=== PATIENT | male | born 1965 | race Caucasian/White ===

== ENCOUNTER 2017-01-07 00:46 | Inpatient (IN) | payer OTHER, MEDICAID ==
[2017-01-07] MEDS ORDERED: HYDROmorphONE/DILAUDID 1 MG/ML SYR IVP ONE (01:04)
[2017-01-07] MEDS ORDERED: ONDANSETRON 4 MG/2 ML VIAL IVP ONE (01:04)
[2017-01-07] MEDS ORDERED: NS 1,000 ML IV ONE (01:06)
[2017-01-07] MEDS ORDERED: VANCOMYCIN HCL/NORMAL SALINE 250 ML IV ONE (01:06)
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
[2017-01-07 01:48] LABS: ABSOLUTE IMMATURE GRANULOCYTES 0.14 10^3/uL (0.00-0.10); ADD DIFF? NO; ADD MORPH? NO; ADD SCAN? NO; ATYPICAL LYMPHOCYTE FLAG 20 (0-99); FRAGMENT RBC FLAG 0 (0-99); HEMATOCRIT 40.5 % (40.0-51.0); HEMOGLOBIN 13.3 g/dL (13.7-17.5); LEFT SHIFT FLG 10 (0-99); LIPEMIA HEMOLYSIS FLAG 80 (0-99); MEAN CELL HEMOGLOBIN 28.1 pg (27.9-34.1); MEAN CELL HEMOGLOBIN CONCENTR. 32.8 g/dL (32.4-36.7); MEAN CELL VOLUME 85.4 fL (81.5-99.8); MEAN PLATELET VOLUME 9.8 fL (8.7-11.7); PLATELET CLUMPS FLAG 10 (0-99); PLATELET COUNT 277 10^3/uL (150-400); RED BLOOD CELL COUNT 4.74 10^6/uL (4.40-6.38); RED CELL DISTRIBUTION WIDTH 14.1 % (11.5-15.2)
[2017-01-07] MEDS ORDERED: NS 2,700 ML IV ONE (01:53)
[2017-01-07 01:57] LABS: APTT 28.5 SEC (23.0-38.0); INR 1.13 (0.83-1.16); PROTIME(PATIENT) 14.4 SEC (12.0-15.0)
[2017-01-07 01:59] LABS: ALKALINE PHOSPHATASE 76 IU/L (38-126); ANION GAP 15 mEq/L (8-16); ASPARTATE AMINOTRANSFERASE 47 IU/L (17-59); BILIRUBIN,TOTAL 0.7 mg/dL (0.1-1.4); BILIRUBIN-CONJUGATED 0.5 mg/dL (0.0-0.5); BILIRUBIN-UNCONJUGATED 0.2 mg/dL (0.0-1.1); CALCIUM 9.1 mg/dL (8.5-10.4); CARBON DIOXIDE 22 mEq/l (22-31); CHLORIDE 105 mEq/L (97-110); CREATININE 0.7 mg/dL (0.7-1.3); GLOMERULAR FILTRATION RATE > 60; GLUCOSE 94 mg/dL (70-100); POTASSIUM 4.2 mEq/L (3.5-5.2); SODIUM 142 mEq/L (134-144); TOTAL PROTEIN 7.4 g/dL (6.3-8.2)
[2017-01-07 02:00] LABS: ALANINE AMINOTRANSFERASE 63 IU/L (21-72)
[2017-01-07 02:01] LABS: COLOR YELLOW; LEUKOCYTE ESTERASE,URINE TRACE (NEGATIVE); NITRITE,URINE NEGATIVE (NEGATIVE)
[2017-01-07 02:06] LABS: BACTERIA TRACE /hpf (NONE SEEN); MUCUS TRACE /lpf (NONE-1+); WBC,URINE 15-25 /hpf (0-3)
[2017-01-07] MEDS ORDERED: IOPAMIDOL (ISOVUE-300) 100 ML BTL IV ONE (02:09)
[2017-01-07] MEDS ORDERED: LORazepam 2 MG/ML INJ IVP ONE (02:17)
[2017-01-07] MEDS ORDERED: ACETAMINOPHEN 325 MG TAB PO ONE (02:34)
[2017-01-07 02:42] LABS: LACGHOST ORDER
[2017-01-07] MEDS ORDERED: LORazepam 2 MG/ML INJ IVP PRN (04:27)
[2017-01-07] MEDS ORDERED: oxyCODONE IR 5 MG TAB PO PRN (04:27)
[2017-01-07] MEDS ORDERED: ONDANSETRON 4 MG/2 ML VIAL IVP PRN (04:27)
[2017-01-07] MEDS ORDERED: ONDANSETRON DISINTEGRATING 4 MG TAB PO PRN (04:27)
[2017-01-07] MEDS ORDERED: HYDROmorphONE/DILAUDID 1 MG/ML SYR IVP PRN (04:27)
[2017-01-07] MEDS ORDERED: MAGNESIUM HYDROXIDE 30 ML UDCUP PO PRN (05:18)
[2017-01-07] MEDS ORDERED: POLYETHYLENE GLYCOL 3350 17 GM PKT PO PRN (05:18)
[2017-01-07] MEDS ORDERED: BISACODYL 10 MG SUPP PR PRN ×2 (05:18→13:23)
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
[2017-01-07] MEDS: NS 1,000 ML IV SCH ×2 (06:36→12:34)
[2017-01-07] MEDS: SENNOSIDES/DOCUSATE SODIUM TAB PO SCH ×2 (08:40→22:58)
[2017-01-07] MEDS: ACETAMINOPHEN 325 MG TAB PO PRN ×3 (08:42→18:10)
[2017-01-07] MEDS ORDERED: ERTAPENEM 1 GM in NS 100 ML IV SCH (09:00)
--- NOTE | 2017-01-07 09:06 | WOCRNPDOC ---
[facility] Advanced Assessment Note - Skin Integrity Problem, Advanced Assess Right Anterior Lower Leg Abscess Dressing Type: Allevyn Life Dressing Description: Clean/Dry, Intact Exudate Amount: Minimal Exudate Characteristic(s): Purulent Integumentary Issue Intervention: Dressing Removed Toma Wound Tissue: Erythema, Hot, Erythema Marked by Wound RN Toma Wound Swelling: Moderate Site Measurement - Head-to-Toe Length X Width X Depth (cm): 0.3x0.3x0.1 Skin Integrity Problem Comment: Firm tissue overlying abscess site. Unable to dislodge with Q tip. Advised consult for I Jose Carlos Pritchett in room for care. Will recover area with gauze and tape until seen my MD. Wound care will check in again tomorrow. Right Lower Medial Arm Abscess Dressing Type: Allevyn Life Dressing Description: Clean/Dry, Intact Integumentary Issue Intervention: Dressing Removed Toma Wound Tissue: Erythema, Swollen, Erythema Marked by Wound RN Toma Wound Swelling: Moderate Site Measurement - Head-to-Toe Length X Width X Depth (cm): 0.4x0.4x0.2 Skin Integrity Problem Comment: Smaller abscess than leg wound. Advised consult for I Jose Carlos Pritchett in room for care. Will recover area with gauze and tape until seen my MD. Wound care will check in again tomorrow. Sacrum Pressure Injury Dressing Type: Allevyn Life Dressing Description: Clean/Dry, Intact Exudate Amount: Minimal Exudate Characteristic(s): Serosanguinous Integumentary Issue Intervention: Dressing Changed Toma Wound Tissue: Erythema, Scarred Wound Bed Color: Red Wound Bed Constitution: Granulation Tissue (robust), Smooth Tissue Site Measurement - Head-to-Toe Length X Width X Depth (cm): 5.5x6x0.3 (right sacrum) 1.5x1.5x0.2 (left sacrum). Pressure Injury Stage: Stage 3 Pressure Injury Present on Admit: Yes Skin Integrity Problem Comment: Wound now healing and in proliferative phase. A full thickness wound with unknown previous stage (3 or 4?). Extensive scar tissue on sacrum and coccyx indicating multiple episodes of breakdown and healing. No sign of infection. Offload aggressively. Will order specialty mattress. Wound care will round on this wound again in one week. Scrotum Rash (flat) Skin Integrity Problem Comment: Mild to moderate incontinence associated dermatitis. Will write for barrier cream. Generalized Fungal Infection Dressing Type: Open to Air Skin Integrity Problem Comment: Raised red rash with satellite lesions along groins, axilla, thighs. Flat rash on scrotum. MD aware.
[2017-01-07] MEDS: ENOXAPARIN 40 MG/0.4 ML SYR SC SCH (09:09)
[2017-01-07] MEDS: ERTAPENEM 1 GM in NS 100 ML IV SCH (09:09)
[2017-01-07] MEDS ORDERED: ALBUTEROL 60 PUFFS/8 GM MDI IH PRN (13:23)
--- NOTE | 2017-01-07 13:32 | HOSPPROG ---
Hospitalist Progress Note Assessment/Plan: Patient is a 51/M with paraplegia at T2, intermittent asthma, chronic pain syndrome, neurogenic bladder with self-catheterizations, recent admission to [facility] for R foot osteomyelitis s/p 5th toe amputation, and chronic sacral decubitus ulcers who presents to the ED with fever, generalized fatigue/ malaise. ED work up reveals sepsis due to acute UTI and several skin abscesses that are likely another source of infection. Plan: # severe sepsis (improving) UTI vs abscess -cont erta/vanco -await cultures #abscess (draining) on right wrist right lower leg with fluctuance and pain to palp -surgery consulted to eval for I&D -cont vanco # abdominal distention, pain (improved) Patient came to ED complaining of abdominal pain. CT abd/pelvis shows mild constipation without other acute pathology. Patient reports last bm was on day of presentation but he does feel constipated. Will initiate bowel regimen and monitor serial abdominal exams. #intertrigo -lotrisome cream and consider systemic treatment if not improving with topicals # chronic pain syndrome Will confirm and cont home meds # paraplegia, stage 2 sacral decubitus ulcer Will obtain wound care consult. # mild intermittent asthma Resp status stable on presentation, will provide nebs prn. # PTSD, delusional disorder Will confirm and continue home meds. # dispo: admit to inpatient service for likely > 2 mN stay # gen; regular diet DVT ppx: lovenox Full code Objective: Vital Signs Temp Pulse Resp BP Pulse Ox 36.8 C 79 16 130/77 H 95 01/07/17 11:32 01/07/17 11:32 01/07/17 11:32 01/07/17 11:32 01/07/17 11:32 01/06/17 01/07/17 01/08/17 05:59 05:59 05:59 Intake Total 425 Output Total 420 Balance 5 PT 14.4 SEC (12.0-15.0) 01/07/17 01:36 INR 1.13 (0.83-1.16) 01/07/17 01:36 ICD10 Worksheet Patient Problems: Problems Problem Status Onset Severe sepsis Acute Abscess Acute Urinary tract infection Acute
[2017-01-07] MEDS: VANCOMYCIN 1.5 GM in D5W 250 ML IV SCH (13:50)
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
[2017-01-07] MEDS: CLOTRIMAZOLE/BETAMET DIPROP 15 GM CRTUBE TP SCH ×2 (17:06→22:55)
[2017-01-07] MEDS: LORazepam 2 MG/ML INJ IVP PRN (23:30)
[2017-01-08] MEDS: VANCOMYCIN 1.5 GM in D5W 250 ML IV SCH ×2 (01:33→15:14)
[2017-01-08] MEDS: NS 1,000 ML IV SCH ×2 (01:34→15:14)
[2017-01-08] MEDS: ACETAMINOPHEN 325 MG TAB PO PRN ×3 (03:39→21:33)
[2017-01-08] MEDS: ALBUTEROL 3 ML DEYVIAL IH PRN ×3 (03:52→22:09)
[2017-01-08] MEDS: LORazepam 2 MG/ML INJ IVP PRN ×3 (06:27→21:33)
[2017-01-08] MEDS: ERTAPENEM 1 GM in NS 100 ML IV SCH (09:18)
[2017-01-08] MEDS: ENOXAPARIN 40 MG/0.4 ML SYR SC SCH (09:29)
[2017-01-08] MEDS: SENNOSIDES/DOCUSATE SODIUM TAB PO SCH ×2 (09:30→21:32)
[2017-01-08] MEDS: CLOTRIMAZOLE/BETAMET DIPROP 15 GM CRTUBE TP SCH ×2 (09:32→22:03)
[2017-01-08] MEDS: MULTIVITAMINS 1 EACH TAB PO SCH (09:32)
--- NOTE | 2017-01-08 12:13 | HOSPPROG ---
Hospitalist Progress Note Assessment/Plan: Patient is a 51/M with paraplegia at T2, intermittent asthma, chronic pain syndrome, neurogenic bladder with self-catheterizations, recent admission to [facility] for R foot osteomyelitis s/p 5th toe amputation, and chronic sacral decubitus ulcers who presents to the ED with fever, generalized fatigue/ malaise. ED work up reveals sepsis due to acute UTI and several skin abscesses that are likely another source of infection. # severe sepsis (improving) MRSA abscess vs UTI -cont erta/vanco -await urine cultures #abscess (draining) on right wrist right lower leg with fluctuance and pain to palp s/p I&D by Dr. Stephens 12/07 -cont daily dressing changes/wound care # abdominal distention, pain (improved) Patient came to ED complaining of abdominal pain. CT abd/pelvis shows mild constipation without other acute pathology. Patient reports last bm was on day of presentation but he does feel constipated. Will initiate bowel regimen and monitor serial abdominal exams. #intertrigo -lotrisome cream and consider systemic treatment if not improving with topicals # chronic pain syndrome cont home meds # paraplegia, stage 2 sacral decubitus ulcer wound care consult. # mild intermittent asthma Resp status stable on presentation, will provide nebs prn. # PTSD, delusional disorder Will confirm and continue home meds. # dispo: admit to inpatient service for likely > 2 mN stay. DC to snf on appropriate abx to cover MRSA skin infections and UTI as indicated # gen; regular diet DVT ppx: lovenox Full code Subjective: no fevers. still feels weak and tired Objective: Vital Signs Temp Pulse Resp BP Pulse Ox 36.9 C 66 16 111/61 92 01/08/17 11:20 01/08/17 07:50 01/08/17 11:20 01/08/17 11:20 01/08/17 11:20 Microbiology 01/07/17 14:30 Gram Stain - Final Leg - Aspirate 01/07/17 01/08/17 01/09/17 05:59 05:59 05:59 Intake Total 2375 900 Output Total 770 255 Balance 1605 645 PT 14.4 SEC (12.0-15.0) 01/07/17 01:36 INR 1.13 (0.83-1.16) 01/07/17 01:36 - Physical Exam Constitutional: no apparent distress, appears nourished, not in pain Cardiovascular: regular rate and rhythym, no murmur, rub, or gallop Respiratory: no respiratory distress, no rales or rhonchi, clear to auscultation Skin: other (packed abscess right wrist and right leg) Neurologic: AAOx3, sensation intact bilaterally, CN II-XII Intact, No facial droop ICD10 Worksheet Patient Problems: Problems Problem Status Onset Severe sepsis Acute Abscess Acute Urinary tract infection Acute
--- NOTE | 2017-01-08 14:38 | SOAPPROG ---
SOAP Progress Note Assessment/Plan: Assessment: 51yo M s/p lower leg and forearm I&D - sites continue to drain purulent material. Cont to change packing as needed. Will re-eval tomorrow whether or not needs further debridement, poss in OR. Pain appears well controlled, cellulitis somewhat improved. Plan: 01/08/17 14:37 Objective: Vital Signs Temp Pulse Resp BP Pulse Ox 36.9 C 66 16 111/61 92 01/08/17 11:20 01/08/17 07:50 01/08/17 11:20 01/08/17 11:20 01/08/17 11:20 Microbiology 01/07/17 14:30 Gram Stain - Final Leg - Aspirate 01/07/17 01/08/17 01/09/17 05:59 05:59 05:59 Intake Total 2375 900 Output Total 770 255 Balance 1605 645 PT 14.4 SEC (12.0-15.0) 01/07/17 01:36 INR 1.13 (0.83-1.16) 01/07/17 01:36 ICD10 Worksheet Patient Problems: Problems Problem Status Onset Abscess Acute Severe sepsis Acute Urinary tract infection Acute
[2017-01-09] MEDS: ALBUTEROL 3 ML DEYVIAL IH PRN ×3 (01:43→20:53)
[2017-01-09] MEDS: ACETAMINOPHEN 325 MG TAB PO PRN ×3 (02:10→21:13)
[2017-01-09] MEDS: VANCOMYCIN 1.5 GM in D5W 250 ML IV SCH ×2 (02:54→15:25)
[2017-01-09] MEDS: LORazepam 2 MG/ML INJ IVP PRN ×2 (04:08→21:14)
[2017-01-09] MEDS: MULTIVITAMINS 1 EACH TAB PO SCH (10:25)
[2017-01-09] MEDS: ERTAPENEM 1 GM in NS 100 ML IV SCH ×2 (10:26→13:22)
[2017-01-09] MEDS: SENNOSIDES/DOCUSATE SODIUM TAB PO SCH ×2 (10:51→21:24)
[2017-01-09] MEDS: ENOXAPARIN 40 MG/0.4 ML SYR SC SCH (10:51)
[2017-01-09] MEDS: CLOTRIMAZOLE/BETAMET DIPROP 15 GM CRTUBE TP SCH ×2 (10:54→21:22)
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
[2017-01-09] MEDS: DOXYCYCLINE HYCLATE 100 MG CAP/TAB PO SCH (21:23)
--- NOTE | 2017-01-09 21:34 | HOSPPROG ---
Hospitalist Progress Note Assessment/Plan: DIAGNOSES: -multiple skin abscesses, MRSA in multiple wound cultures -acute r thoracic single dermatome shingles -paraplegia -chronic hip wound -chronic mental health disease, stable The patient has ongoing need for antibiotic therapy. He has lost his peripheral IV access, and at this time will not allow placement of PICC or central line. 6 Nurses have tried to get and IV in unsuccessfully, including use of site recreation worker, and I have examined him and not found an obvious placement site. He has MRSA, and multiple antibiotic allergies limiting therapy chpices. With his multiple hospitalizations he is also at risk for polymicrobial infection with resistance, making antibiotic choice harder. As he has no peripheral access and won't allow picc or central line, I have ordered doxycycline and will see if he is willing over time to take that. He has requested that we transfer him to [facility], which I am told he has requested before. I have contacted the [facility] transfer office but as of this time have not heard back from the admitting physician educational recruiter. Will try them again in the am if the patient still wishes. For his shingles he has had the rash for several days and does not have much pain, so that antiviral is not likely to help. However I did recommend that in the not distant future as outpatient he have a shingles vaccine and he understands this. Objective: Vital Signs Temp Pulse Resp BP Pulse Ox 36.6 C 84 16 131/78 H 93 01/09/17 16:00 01/09/17 16:00 01/09/17 16:00 01/09/17 16:00 01/09/17 16:00 Microbiology 01/07/17 14:30 Gram Stain - Final Leg - Aspirate Wound Culture - Final MRSA 01/08/17 01/09/17 01/10/17 06:59 06:59 06:59 Intake Total 3275 2744 500 Output Total 770 1105 750 Balance 2505 1639 -250 PT 14.4 SEC (12.0-15.0) 01/07/17 01:36 INR 1.13 (0.83-1.16) 01/07/17 01:36 ICD10 Worksheet Patient Problems: Problems Problem Status Onset Abscess Acute Severe sepsis Acute Urinary tract infection Acute
[2017-01-10] MEDS: VANCOMYCIN 1.5 GM in D5W 250 ML IV SCH ×3 (01:23→12:09)
[2017-01-10] MEDS: LORazepam 1 MG TAB PO PRN ×2 (01:37→23:28)
[2017-01-10] MEDS: ACETAMINOPHEN 325 MG TAB PO PRN ×3 (03:01→23:28)
[2017-01-10] MEDS: DOXYCYCLINE HYCLATE 100 MG CAP/TAB PO SCH ×3 (08:58→23:51)
[2017-01-10] MEDS: CLOTRIMAZOLE/BETAMET DIPROP 15 GM CRTUBE TP SCH ×2 (08:58→23:53)
[2017-01-10] MEDS: ERTAPENEM 1 GM in NS 100 ML IV SCH (08:59)
[2017-01-10] MEDS: ENOXAPARIN 40 MG/0.4 ML SYR SC SCH (08:59)
[2017-01-10] MEDS: MULTIVITAMINS 1 EACH TAB PO SCH (10:45)
[2017-01-10] MEDS: SENNOSIDES/DOCUSATE SODIUM TAB PO SCH ×2 (10:45→23:54)
[2017-01-10] MEDS: ALBUTEROL 3 ML DEYVIAL IH PRN ×2 (11:20→17:35)
--- NOTE | 2017-01-10 11:27 | HOSPPROG ---
Hospitalist Progress Note Assessment/Plan: DIAGNOSES: -multiple skin abscesses all present on admission, MRSA in multiple wound cultures -acute r thoracic single dermatome shingles, nonpainful, 1st ever episode -paraplegia -chronic hip wound -chronic mental health disease, stable Overall there is some improvement in the appearance of his abscess lesions but they still require wound care and antibiotic therapy. Last night the nurses were finally with further efforts able to get a peripheral IV in his arm. However the IV came out before they were able to get his 1st dose of vancomycin put in. Patient describes that he thinks he knocked the IV against the bed rail. However as I talked to the nurses the IV tubing was on screwed from the IV catheter and the tape had been pulled up from the IV catheter in the appearance identical to what they found with the IV that came out earlier in the day, which also had the tubing and a screwed somehow from the IV catheter. They were suspicious that the patient had disconnected the IV tubing and full detail about on his own. I offered him oral doxycycline last night and ordered this but he has been refusing to take the oral doxycycline. He is telling me now that oral antibiotics never worked for him and he can't take them. He also again is steadfastly refusing to having either a PICC line or central line placed even know there is no medical indication for avoiding those lines specifically in his case beyond the usual. I had a phone discussion with his sister today. She is his guardian and conservator or as court appointed. She tells me that is quite routine for him to refuse oral medications and refuse other recommended treatments. He also frequently apparently removed IV catheters. She says that he quite routinely also requests or demands to be transferred from 1 hospital to another. In the past he has called 911 from his hospital room numerous times and this hospital and other hospitals have had avendaño telephones out of his room due to this. He also calls 911 from [facility], the nursing facility where he lives and they have not allow the phone in his room there either. He has continually requested that he be new moved to another nursing facility for residence. In order to maintain continuity of care , she is requesting that he continue to stay at [facility] and continue to have his medical his care here at [facility]. I spoke with the patient again today about options for treating his abscesses. He is very willing to go along with wound care recommendations. However he is steadfast again today in declining to accept oral antibiotics or to accept a PICC catheter or central line. I informed him that would make 1 further attempt to trying get a peripheral IV in as it took 8 nurses and using a site matter to get 1 yesterday. If the nurses are unable to get a peripheral IV placed or if a peripheral IV is placed and is removed, he will need to make a choice between oral antibiotics and the central line. He has not had an antibiotic dose now for more than 24 hours. Notably I had requested consultation yesterday from Dr. Bliss from Infectious Disease to review and make recommendations amount therapy and antibiotics. The patient declined to allow Dr. Buckner to assess his abscesses. PLANS: -have nurses make 1 more attempt to get peripheral IV in -If unsuccessful will review with the patient again and he will either need to choose between a PICC line and oral doxycycline -Continue wound care -DVT prophylaxis -will shingles vaccine as an outpatient SUBJECTIVE: The patient still complains of his usual back pain and leg pains. He does not specifically of pain at his abscesses at this time Eating okay OBJECTIVE Vitals reviewed: Stable without fever Exam: alert oriented skin the abscess on his wrist at now has a dried scab over it though there is no accumulating fluid and the cellulitis around it seems better. There is a small very superficial abscess now forming just distal to that separate from it completely with mild area of surrounding cellulitis. I drained a very tiny amount of purulent fluid from this abscess by needle was unable to express or remove any other fluid but feel no fluctuance. There is no necrosis at either these. On his right leg the abscess still has mild cellulitis around it. The tape was removed my presence by the nurse and there is still purulent material on the tape so where repacking the wound with tape again. Again there is no evidence of necrosis at this wound. resps not labored lungs clear BSs heart regular abd soft nondistended nontender, bowel sounds present limbs warm, no edema iv site ok Objective: Vital Signs Temp Pulse Resp BP Pulse Ox 36.6 C 73 18 152/94 H 93 01/10/17 08:00 01/10/17 08:00 01/10/17 08:00 01/10/17 08:00 01/10/17 08:00 Microbiology 01/07/17 14:30 Gram Stain - Final Leg - Aspirate Wound Culture - Final MRSA 01/09/17 01/10/17 01/11/17 06:59 06:59 06:59 Intake Total 2744 500 Output Total 1105 750 Balance 1639 -250 PT 14.4 SEC (12.0-15.0) 01/07/17 01:36 INR 1.13 (0.83-1.16) 01/07/17 01:36 ICD10 Worksheet Patient Problems: Problems Problem Status Onset Abscess Acute Severe sepsis Acute Urinary tract infection Acute
[2017-01-10] MEDS: LORazepam 2 MG/ML INJ IVP PRN (12:05)
--- NOTE | 2017-01-10 17:07 | PCMIDPN ---
Assessment/Plan: Assessment/Plan: 1. Multiple skin abscess: polymicrobial: -Cx with mrsa, Group A strep, klebiella -was on vanco, invanz. lost iv and is refusing picc line. unable to get peripheral iv -now on doxycycline. Was previously refusing oral antibiotics but finally agreed to taking it this afternoon and took first dose -spoke with anup. Russ is sensitive to tetracycline and they wiill update susceptibility profile. 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 -doxy however, doesn't cover STrep well enough -he needs ongoing wound care. -will add mupirocin to nose x 5 days. -care coordiated with his Rn. Subjective: afebrile. eyes closed. patient states he doesn't want to talk to anyone right now. Objective: Vital Signs Temp Pulse Resp BP Pulse Ox 36.6 C 72 24 H 153/79 H 93 01/10/17 08:00 01/10/17 15:55 01/10/17 15:55 01/10/17 15:55 01/10/17 15:55 Microbiology 01/07/17 14:30 Gram Stain - Final Leg - Aspirate Wound Culture - Final MRSA 01/09/17 01/10/17 01/11/17 05:59 05:59 05:59 Intake Total 3644 500 Output Total 1679 632 1655 Balance 0113 -800 -4678 - Physical Exam General Appearance: other (eyes closed. pt refusing exam) ICD10 Worksheet Patient Problems: Problems Problem Status Onset Abscess Acute Severe sepsis Acute Urinary tract infection Acute
[2017-01-10] MEDS: MUPIROCIN 2% 22 GM OINT NS SCH (23:54)
[2017-01-11] MEDS: ENOXAPARIN 40 MG/0.4 ML SYR SC SCH (08:13)
[2017-01-11] MEDS: SENNOSIDES/DOCUSATE SODIUM TAB PO SCH ×2 (08:13→20:44)
[2017-01-11] MEDS: MUPIROCIN 2% 22 GM OINT NS SCH ×2 (08:13→23:24)
[2017-01-11] MEDS: MULTIVITAMINS 1 EACH TAB PO SCH (08:13)
[2017-01-11] MEDS: DOXYCYCLINE HYCLATE 100 MG CAP/TAB PO SCH ×2 (08:13→20:44)
[2017-01-11] MEDS: CLOTRIMAZOLE/BETAMET DIPROP 15 GM CRTUBE TP SCH ×2 (08:13→23:24)
[2017-01-11] MEDS: LORazepam 1 MG TAB PO PRN ×2 (09:56→20:44)
[2017-01-11] MEDS: ACETAMINOPHEN 325 MG TAB PO PRN ×2 (09:56→20:44)
[2017-01-11] MEDS ORDERED: ALTEPLASE 2 MG VIAL IVP PRN (10:03)
--- NOTE | 2017-01-11 10:17 | WOCRNPDOC ---
WOCRN Advanced Assessment Note - Skin Integrity Problem, Advanced Assess Right Anterior Lower Leg Abscess Dressing Type: Kerlix, Plain Packing (laying on top of wound bed) Dressing Description: Shadowed Exudate Amount: Scant Exudate Color: Brown Exudate Characteristic(s): Dried, Sanguinous Integumentary Issue Intervention: Dressing Changed, Silver Gel Applied Aleshia Wound Tissue: Erythema, Swollen, Erythema Marked by Wound RN (Marked by wound RN on 01/07) Aleshia Wound Swelling: Mild Wound Bed Color: Red, Yellow Wound Bed Constitution: Smooth Tissue, Scab, Dried Exudate Site Odor: None Site Measurement - Head-to-Toe Length X Width X Depth (cm): 0.7cmx0.3cmx0.1cm Skin Integrity Problem Comment: Assessed wounds w/ Dr. Bates and IDALIA Ames. Packing from previous dressing change observed on top of wound. After cleansing site w/ NS and gauze, no appreciable depth was noted in this wound. Wound bed comprised of dried sanguinous and serous fluid. Aleshia-wound erythema marked by wound RN on 01/07 is still apparent, though redness has receded and remains w/in confines of previous marking. There is some mild swelling, but no fluctuance. Applied Silvasorb gel and Allevyn to protect wound. videotape operatorCHENCHO Winkler present and assisting. Right Lower Medial Arm Abscess Dressing Type: Gauze, Kerlix Exudate Amount: Scant Exudate Color: Brown Exudate Characteristic(s): Dried Integumentary Issue Intervention: Dressing Changed, Silver Gel Applied Aleshia Wound Tissue: Erythema, Swollen Aleshia Wound Swelling: Mild Wound Bed Color: Red Wound Bed Constitution: Dried Exudate Wound Edges: Epithelizing Site Odor: None Site Measurement - Head-to-Toe Length X Width X Depth (cm): 0.2cmx0.2cmx0.1cm Skin Integrity Problem Comment: Small, dried, wound bed noted, w/ no appreciable depth. There is mild, discrete aleshia-wound erythema w/ mild associated swelling. No fluctuance noted. Applied Silvasorb gel and Allevyn to protect site. videotape operatorCHENCHO Winkler present and assisting.
--- NOTE | 2017-01-11 10:18 | HOSPPROG ---
Hospitalist Progress Note Assessment/Plan: DIAGNOSES: -multiple skin abscesses all present on admission, MRSA, Klebsiella and Strep in multiple wound cultures -acute r thoracic single dermatome shingles, nonpainful, 1st ever episode -paraplegia -chronic hip wound -chronic mental health disease, stable Overall doing ok but still with cellulitis around his abscesses that is not really improving. No signs of sepsis. Today he is more motivated to get better and to work with us here, and is now willing to accept picc line so that we can get better strep coverage PLANS: -will get picc in and change coverage to get at strep better, will review with ID -Continue wound care -DVT prophylaxis -will need shingles vaccine as an outpatient SUBJECTIVE: The patient still complains of his usual back pain and leg pains. No pain at abscesses no other acute sxs Eating okay OBJECTIVE Vitals reviewed: Stable without fever, intermittent mild syst htn I examined today with wound care nurse and with Baldomero Garner of surgery Exam: alert oriented skin the abscess on his wrist at now has a dried scab, no fluctuance, but the surrounding cellulitis is no better. The smaller superficial abscess just distal to the original lesion has still area of surrounding cellulitis. . On his right calve the abscess still has mild cellulitis around it and the tape and cover dressing are with purulent materila. There is no necrosis at any of these. resps not labored lungs clear BSs heart regular abd soft nondistended nontender, bowel sounds present limbs warm, no edema iv site ok Objective: Vital Signs Temp Pulse Resp BP Pulse Ox 36.9 C 71 16 130/82 H 93 01/11/17 08:00 01/11/17 08:00 01/11/17 08:00 01/11/17 08:00 01/11/17 08:00 01/10/17 01/11/17 01/12/17 06:59 06:59 06:59 Intake Total 500 700 Output Total 750 2125 Balance -250 -1425 PT 14.4 SEC (12.0-15.0) 01/07/17 01:36 INR 1.13 (0.83-1.16) 01/07/17 01:36 ICD10 Worksheet Patient Problems: Problems Problem Status Onset Abscess Acute Severe sepsis Acute Urinary tract infection Acute
--- NOTE | 2017-01-11 16:10 | SOAPPROG ---
SOAP Progress Note Assessment/Plan: Assessment: 51yo male with multiple medical problems s/p I&D right wrist, right lower leg abscess. Initially refused antibiotics, now agreeable PE R wrist mild erythema around incision and drainage site, no fluctuance Right lower leg minimal erythema, no fluctuance over incision and drainage site Plan: no need for further I&D at this time, continue antibiotics. will discuss with Dr Spaulding/Yamil 01/11/17 16:07 Objective: Vital Signs Temp Pulse Resp BP Pulse Ox 36.9 C 71 16 130/82 H 93 01/11/17 08:00 01/11/17 08:00 01/11/17 08:00 01/11/17 08:00 01/11/17 08:00 01/10/17 01/11/17 01/12/17 05:59 05:59 05:59 Intake Total 500 700 Output Total 750 2125 Balance -250 -1425 PT 14.4 SEC (12.0-15.0) 01/07/17 01:36 INR 1.13 (0.83-1.16) 01/07/17 01:36 ICD10 Worksheet Patient Problems: Problems Problem Status Onset Abscess Acute Severe sepsis Acute Urinary tract infection Acute
[2017-01-12] MEDS ORDERED: CALCIUM CARBONATE 500 MG CHEWABLE TAB PO PRN (01:54)
[2017-01-12] MEDS: ACETAMINOPHEN 325 MG TAB PO PRN ×3 (02:43→19:08)
[2017-01-12] MEDS: LORazepam 1 MG TAB PO PRN ×3 (02:43→19:09)
[2017-01-12 09:05] VITALS: BP 123/80; PULSE 70; RESP 16; TEMP 98; O2SAT 96
[2017-01-12] MEDS: CLOTRIMAZOLE/BETAMET DIPROP 15 GM CRTUBE TP SCH (10:31)
[2017-01-12] MEDS: MUPIROCIN 2% 22 GM OINT NS SCH (10:32)
[2017-01-12] MEDS: ENOXAPARIN 40 MG/0.4 ML SYR SC SCH (10:32)
[2017-01-12] MEDS: SENNOSIDES/DOCUSATE SODIUM TAB PO SCH (10:33)
[2017-01-12] MEDS: MULTIVITAMINS 1 EACH TAB PO SCH (10:34)
[2017-01-12] MEDS: DOXYCYCLINE HYCLATE 100 MG CAP/TAB PO SCH (10:35)
[2017-01-12] MEDS ORDERED: LACTULOSE 20 GM/30 ML UDCUP PO PRN (15:04)
--- NOTE | 2017-01-12 17:29 | PDIAF ---
- Diagnosis Diagnosis: multiple superficial skin abscesses with MRSA; constipation; acute shingles Code Status: Full Code - Medication Management Discharge Medications: Medications to Continue on Transfer Albuterol [Proventil Inhaler HFA (*)] 1 - 2 puffs IH DAILY PRN 01/07/17 [Last Taken Unknown] Bisacodyl [Bisacodyl (*)] 5 mg PO PRN PRN 01/07/17 [Last Taken Unknown] Bisacodyl [Dulcolax] 10 mg RC DAILY PRN 01/07/17 [Last Taken Unknown] Multivitamins [Multivitamin (*)] 1 each PO DAILY 01/07/17 [Last Taken Unknown] Clotrimazole/Betamet Diprop [Lotrisone Cream (*)] 1 catrachita TP BID cream 01/12/17 [ Last Taken Unknown] Doxycycline Hyclate [Vibramycin 100 MG (*)] 100 mg PO BID capsule 01/12/17 [ Last Taken Unknown] Polyethylene Glycol 3350 [Miralax 17 gm (*)] 17 gm PO DAILY PRN #0 pkt 01/12/17 [Last Taken Unknown] Sennosides/Docusate Sodium [Senokot-S] 1 - 2 tab PO BID tab 01/12/17 [Last Taken Unknown] Discharge Medications: Refer to the Discharge Home Medication list for PRN reason. PICC Care - Routine: N/A - Orders Services needed: Registered Nurse, Certified Paper Handler, Master Certified Appliance Service Technician Diet Recommendation: no restrictions on diet Diet Texture: Regular Texture Diet Wound Care Instructions: dressing changes to wound on R wrist, R lateral calve, and L first toe/foot Additional: Contact isolation for both Shingles (for one more week) and MRSA - Follow Up Care Current Providers and Referrals: Patient,NotPresent [Unknown] - As per Instructions
--- NOTE | 2017-01-12 17:53 | PDDCSUM ---
Discharge Summary Discharge Summary: DISCHARGE DIAGNOSES: -multiple skin abscesses all present on admission, MRSA, and Strep in multiple wound cultures -constipation -acute R thoracic single dermatome shingles, nonpainful, 1st ever episode -paraplegia -chronic hip wound -chronic mental health disease, stable CONSULTANTS: Dr. Izaiah Buckner of Infectious Disease PROCEDURES: Incision and drainage of abscesses of the skin HOSPITAL COURSE SUMMARY: This patient presented to the hospital with fever, skin abscess, and constipation. He was found to have multiple skin abscesses primarily there were small superficial skin abscess on the right wrist and right calf. These were recent onset. These were excised and drained with small amount of purulent fluid cultures of which grew MRI say and strep. There is also a Klebsiella of questionable significance. The patient was started on antibiotics and responded quite well with wound care and antibiotics and these are healing up very nicely. Ongoing wound care and antibiotics to be carried out at the nursing facility where he lives at this point. He also did have some abdominal pain and constipation. CT scan had been done in the ER that showed constipation but no other findings. Here in the hospital he did have bowel movements. Despite these bowel movement he continued to complain of some discomfort related to his bowels. However he was eating well without difficulty there with no nausea no fever no real abdominal tenderness or peritoneal signs on exam. He did initially take some laxatives but then requested enemas. When we went to give enemas he declined these. At this point no further care besides stool softeners and occasional laxative are indicated. He is 51 and has never had a colonoscopy and I did discuss with him that he should talk with his primary care physician about referral for screening colonoscopy. PENDING TEST RESULTS: None MEDICATION CHANGES: Doxycycline 100 mg twice daily for another 5 days FOLLOW-UP PLAN: Follow up with his primary care at the snf facility along with wound care nursing Is recommended that the patient have screening colonoscopy sometime in the not terribly distant future his he was reached age 51 and has constipation. I did discuss this with the patient and recommended he review with his primary care physician. Greater than 35 minutes bedside and care coordination time today
--- NOTE | 2017-01-26 14:53 | PQFORM ---
PHYSICIAN QUERY FORM Needs Your Response This query form is being sent to you to assure this patient record is coded properly. Please respond to the question below: RESEARCH AGRICULTURAL ENGINEER QUESTION: Dr Walker Please clarify the stage of the patients Sacral Ulcer as it has been documented as both Stage 2 as well as Stage 3. ___ Stage 2 __x_ Stage 3 ___ Other (Please Specify ) ___ Undetermined Thank You Margy RODGERS Primer Powder Blender Wet INSTRUCTIONS FOR RESPONSE: Answer question by clicking on the "Edit Document" button. Move cursor to area below the stars. When complete, hit "Save." Click on the "Sign" button, then click "Sign" again. Type in your PIN and hit "Enter." MTDD
== END 2017-01-12 19:14 | DRG 871 ==
LOC: EEVIPCON 00:46 → OBSVTOIN 04:27 → F3E 04:35
PROVIDERS: ADMIT Internal Medicine; ATTEND Family Medicine
PROC: 0H9CXZX Drainage of Left Upper Arm Skin, External Approach, Diagnostic (ICD-10-PCS; principal; 2017-01-07)
PROC: 0H9KXZX Drainage of Right Lower Leg Skin, External Approach, Diagnostic (ICD-10-PCS; principal; 2017-01-07)
DX: A41.02 Sepsis due to Methicillin resistant Staphylococcus aureus (principal); R65.20 Severe sepsis without septic shock; L02.413 Cutaneous abscess of right upper limb; L02.415 Cutaneous abscess of right lower limb; L89.153 Pressure ulcer of sacral region, stage 3; B02.9 Zoster without complications; K59.00 Constipation, unspecified; G82.22 Paraplegia, incomplete; B96.1 Klebsiella pneumoniae [K. pneumoniae] as the cause of diseases classified elsewhere; G89.29 Other chronic pain; N31.9 Neuromuscular dysfunction of bladder, unspecified; F43.10 Post-traumatic stress disorder, unspecified; S24 Injury of nerves and spinal cord at thorax level; W34.00XS Accidental discharge from unspecified firearms or gun, sequela; Z99.3 Dependence on wheelchair
CPT/HCPCS: 96365; 96374; 97163-GP; G8978-GP-CM; G8979-GP-CK; J1170; J1335; J1650; J2060; J2405; J3370; Q9967

== ENCOUNTER 2017-02-08 23:33 | Emergency (ER) | payer OTHER, MEDICAID ==
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
[2017-02-09 00:23] LABS: ABSOLUTE IMMATURE GRANULOCYTES 0.12 10^3/uL (0.00-0.10); ADD DIFF? NO; ADD MORPH? NO; ADD SCAN? NO; ATYPICAL LYMPHOCYTE FLAG 20 (0-99); FRAGMENT RBC FLAG 0 (0-99); HEMATOCRIT 41.9 % (40.0-51.0); HEMOGLOBIN 13.5 g/dL (13.7-17.5); LEFT SHIFT FLG 10 (0-99); LIPEMIA HEMOLYSIS FLAG 80 (0-99); MEAN CELL HEMOGLOBIN 26.7 pg (27.9-34.1); MEAN CELL HEMOGLOBIN CONCENTR. 32.2 g/dL (32.4-36.7); MEAN CELL VOLUME 82.8 fL (81.5-99.8); PLATELET CLUMPS FLAG 10 (0-99); PLATELET COUNT 299 10^3/uL (150-400); RED BLOOD CELL COUNT 5.06 10^6/uL (4.40-6.38); RED CELL DISTRIBUTION WIDTH 14.3 % (11.5-15.2)
[2017-02-09 00:25] LABS: COLOR YELLOW; LEUKOCYTE ESTERASE,URINE 1+ (NEGATIVE); NITRITE,URINE NEGATIVE (NEGATIVE)
[2017-02-09 00:34] LABS: ANION GAP 14 mEq/L (8-16); CALCIUM 9.1 mg/dL (8.5-10.4); CARBON DIOXIDE 25 mEq/l (22-31); CHLORIDE 104 mEq/L (97-110); CREATININE 0.7 mg/dL (0.7-1.3); GLOMERULAR FILTRATION RATE > 60; GLUCOSE 98 mg/dL (70-100); SODIUM 143 mEq/L (134-144)
[2017-02-09 00:44] LABS: BACTERIA TRACE /hpf (NONE SEEN); MUCUS 2+ /lpf (NONE-1+); WBC,URINE 25-50 /hpf (0-3)
[2017-02-09 00:58] VITALS: PULSE 78
[2017-02-09] MEDS ORDERED: DOXYCYCLINE INJ 100 MG in NS 250 ML IV SCH (01:00)
[2017-02-09 04:21] VITALS: BP 115/81; RESP 16; TEMP 98.1; O2SAT 95
== END 2017-02-09 04:21 | disposition home or self-care (01) ==
LOC: EDUNIT#
DX: N30.00 Acute cystitis without hematuria (principal); B96.4 Proteus (mirabilis) (morganii) as the cause of diseases classified elsewhere; B95.7 Other staphylococcus as the cause of diseases classified elsewhere
CPT/HCPCS: 96365

== ENCOUNTER 2017-02-12 01:41 | Emergency (ER) | payer OTHER, MEDICAID ==
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
[2017-02-12] MEDS ORDERED: ACETAMINOPHEN 325 MG TAB PO ONE ×2 (02:55→07:03)
[2017-02-12 09:12] VITALS: RESP 18
[2017-02-12 12:43] VITALS: BP 110/72; PULSE 85; TEMP 98.4; O2SAT 92
== END 2017-02-12 11:42 | disposition home or self-care (01) ==
LOC: EDBD → EDUNIT#
DX: G82.20 Paraplegia, unspecified (principal); L89.40 Pressure ulcer of contiguous site of back, buttock and hip, unspecified stage

== ENCOUNTER 2017-04-26 02:48 | Inpatient (IN) | payer OTHER, MEDICAID ==
[2017-04-26 03:29] LABS: % IMMATURE GRANULYOCYTES 0.6 % (0.0-1.1); ABSOLUTE IMMATURE GRANULOCYTES 0.07 10^3/uL (0.00-0.10); ADD DIFF? NO; ADD MORPH? NO; ADD SCAN? NO; ATYPICAL LYMPHOCYTE FLAG 10 (0-99); FRAGMENT RBC FLAG 0 (0-99); HEMOGLOBIN 16.1 g/dL (13.7-17.5); LEFT SHIFT FLG 0 (0-99); LIPEMIA HEMOLYSIS FLAG 80 (0-99); MEAN CELL HEMOGLOBIN 26.6 pg (27.9-34.1); MEAN CELL HEMOGLOBIN CONCENTR. 32.2 g/dL (32.4-36.7); MEAN CELL VOLUME 82.5 fL (81.5-99.8); MEAN PLATELET VOLUME 9.6 fL (8.7-11.7); PLATELET CLUMPS FLAG 0 (0-99); PLATELET COUNT 295 10^3/uL (150-400); RED BLOOD CELL COUNT 6.06 10^6/uL (4.40-6.38); RED CELL DISTRIBUTION WIDTH 16.4 % (11.5-15.2)
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
--- NOTE | 2017-04-26 03:33 | CPEKG ---
Heart Rate: 75 RR Interval: 800 P-R Interval: 164 QRSD Interval: 86 QT Interval: 368 QTC Interval: 411 P Enderlin: 8 QRS Enderlin: 73 T Wave Enderlin: 81 EKG Severity - NORMAL ECG - EKG Impression: SINUS RHYTHM Electronically Signed By: Jah Henry 26-Apr-2017 05:31:51
[2017-04-26 03:48] LABS: ALANINE AMINOTRANSFERASE 55 IU/L (21-72); ALKALINE PHOSPHATASE 88 IU/L (38-126); ANION GAP 18 mEq/L (8-16); ASPARTATE AMINOTRANSFERASE 31 IU/L (17-59); BILIRUBIN,TOTAL 0.5 mg/dL (0.1-1.4); BILIRUBIN-CONJUGATED 0.4 mg/dL (0.0-0.5); BILIRUBIN-UNCONJUGATED 0.1 mg/dL (0.0-1.1); C-REACTIVE PROTEIN 25.2 mg/L (<10.0); CALCIUM 10.1 mg/dL (8.5-10.4); CARBON DIOXIDE 20 mEq/l (22-31); CHLORIDE 105 mEq/L (97-110); CREATININE 0.8 mg/dL (0.7-1.3); GLOMERULAR FILTRATION RATE > 60; GLUCOSE 99 mg/dL (70-100); POTASSIUM 4.5 mEq/L (3.5-5.2); SODIUM 143 mEq/L (134-144); TOTAL PROTEIN 9.7 g/dL (6.3-8.2)
[2017-04-26 03:56] LABS: COLOR PALE YELLOW; LEUKOCYTE ESTERASE,URINE TRACE (NEGATIVE); NITRITE,URINE NEGATIVE (NEGATIVE)
[2017-04-26 03:57] LABS: BACTERIA TRACE /hpf (NONE SEEN)
[2017-04-26] MEDS ORDERED: VANCOMYCIN HCL/NORMAL SALINE 250 ML IV ONE (04:00)
[2017-04-26] MEDS ORDERED: ONDANSETRON 4 MG/2 ML VIAL IVP PRN (04:04)
[2017-04-26] MEDS ORDERED: ONDANSETRON DISINTEGRATING 4 MG TAB PO PRN (04:04)
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
[2017-04-26 06:12] LABS: % IMMATURE GRANULYOCYTES 0.7 % (0.0-1.1); ABSOLUTE IMMATURE GRANULOCYTES 0.06 10^3/uL (0.00-0.10); ADD DIFF? NO; ADD MORPH? NO; ADD SCAN? NO; ATYPICAL LYMPHOCYTE FLAG 0 (0-99); FRAGMENT RBC FLAG 0 (0-99); HEMATOCRIT 44.2 % (40.0-51.0); HEMOGLOBIN 14.5 g/dL (13.7-17.5); LEFT SHIFT FLG 0 (0-99); LIPEMIA HEMOLYSIS FLAG 80 (0-99); MEAN CELL HEMOGLOBIN 27.1 pg (27.9-34.1); MEAN CELL HEMOGLOBIN CONCENTR. 32.8 g/dL (32.4-36.7); MEAN CELL VOLUME 82.6 fL (81.5-99.8); MEAN PLATELET VOLUME 9.4 fL (8.7-11.7); PLATELET CLUMPS FLAG 0 (0-99); PLATELET COUNT 239 10^3/uL (150-400); RED BLOOD CELL COUNT 5.35 10^6/uL (4.40-6.38); RED CELL DISTRIBUTION WIDTH 16.1 % (11.5-15.2)
[2017-04-26 06:26] LABS: ANION GAP 14 mEq/L (8-16); CALCIUM 9.4 mg/dL (8.5-10.4); CARBON DIOXIDE 22 mEq/l (22-31); CHLORIDE 106 mEq/L (97-110); CREATININE 0.7 mg/dL (0.7-1.3); GLOMERULAR FILTRATION RATE > 60; GLUCOSE 87 mg/dL (70-100); POTASSIUM 4.3 mEq/L (3.5-5.2); SODIUM 142 mEq/L (134-144)
[2017-04-26] MEDS: NS 1,000 ML IV SCH ×2 (06:40→14:20)
[2017-04-26] MEDS ORDERED: VANCOMYCIN 500 MG in D5W 100 ML IV ONE (07:30)
[2017-04-26] MEDS: ACETAMINOPHEN 325 MG TAB PO PRN ×2 (09:01→21:49)
[2017-04-26] MEDS: ENOXAPARIN 40 MG/0.4 ML SYR SC SCH (09:02)
--- NOTE | 2017-04-26 10:16 | WOCRNPDOC ---
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 The incision line along the superior portion of the flap presents as a full thickness wound. There are no underlying structures visible and the wound bed is clean. There is a second wound (4 smaller wounds in a row) that extends inferiorly along the right buttock which is also full thickness with a clean non granulating pink wound bed. There is a third and final wound on left buttock which is smaller, but is also full thickness and may have a larger friction component instead of pressure. All the wounds are surrounded by xerotic erythematic skin that is blanching. The area has extensive scar tissue. Specialty mattress ordered and patient should be offloaded aggressively side to side. CHENCHO Loomis in room and Dr. Jung visualized wound as well. Wound care will round again on Monday 04/30.
[2017-04-26] MEDS ORDERED: SENNOSIDES/DOCUSATE SODIUM TAB PO PRN (12:08)
[2017-04-26] MEDS ORDERED: NON-FORMULARY NEW DRUG (Loratadine [Loratadine] 10 MG) PO PRN (12:08)
[2017-04-26] MEDS ORDERED: POLYETHYLENE GLYCOL 3350 17 GM PKT PO PRN (12:08)
[2017-04-26] MEDS ORDERED: BISACODYL 10 MG SUPP PR PRN (12:08)
[2017-04-26] MEDS ORDERED: ALBUTEROL 60 PUFFS/8 GM MDI IH PRN (12:08)
[2017-04-26] MEDS ORDERED: IPRATROPIUM/ALBUTEROL 3 ML DEYVIAL IH PRN (12:08)
--- NOTE | 2017-04-26 12:12 | HOSPPROG ---
Hospitalist Progress Note Assessment/Plan: #Concern for right foot cellulitis -h/o MRSA 5th toe osteo. s/p partial resection. No osteo on xray. IV Vanc. Will d/w Dr. Chew #Chronic pain: accupuncture consulted, home meds #Leukocytosis: resolved. Sacral wounds do not appear infected #T2 paraplegia: cont home meds #Asthma: no e/o exacerbation #Diet: regular #DVT ppx: Lovenox #Disp: cont IV Vanc Subjective: spasm in right leg Objective: Vital Signs Temp Pulse Resp BP Pulse Ox 37.1 C 80 20 97/63 L 95 04/26/17 11:51 04/26/17 11:51 04/26/17 11:51 04/26/17 11:51 04/26/17 11:51 Laboratory Results 04/26/17 05:50 04/26/17 05:50 04/25/17 04/26/17 04/27/17 05:59 05:59 05:59 Intake Total 250 Output Total 225 Balance 25 - Physical Exam Constitutional: no apparent distress Eyes: PERRL Ears, Nose, Mouth, Throat: moist mucous membranes Cardiovascular: regular rate and rhythym, no murmur, rub, or gallop Respiratory: no respiratory distress, no rales or rhonchi Gastrointestinal: normoactive bowel sounds, soft, non-tender abdomen Genitourinary: no bladder fullness Skin: other (sacral flap Stage 4 ulcer without purulence or surrounding erythema ) Musculoskeletal: other (right foot/ankle with erythema, initially cool to touch. Re-examination, it is warm with paplable pulses) Neurologic: other (spasticity of RLE ) Psychiatric: interacting appropriately ICD10 Worksheet Patient Problems: Problems Problem Status Onset Cellulitis Acute Decubitus ulcer Acute Abscess Acute MRSA (methicillin resistant Staphylococcus aureus) Acute ~02/09/17 Severe sepsis Acute UTI (urinary tract infection) Acute Urinary tract infection Acute
[2017-04-26] MEDS ORDERED: CETIRIZINE 10 MG TAB PO PRN (12:17)
[2017-04-26] MEDS ORDERED: ALBUTEROL 200 PUFFS/18 GM MDI IH PRN (12:18)
[2017-04-26] MEDS ORDERED: VANCOMYCIN 1.5 GM in D5W 250 ML IV SCH (18:00)
[2017-04-26] MEDS: VANCOMYCIN 1.25 GM in D5W 250 ML IV SCH (18:51)
[2017-04-26] MEDS: MULTIVITAMINS 1 EACH TAB PO SCH (19:01)
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
[2017-04-26] MEDS: CLOTRIMAZOLE 1% 15 GM CRTUBE TP SCH (21:50)
[2017-04-26] MEDS: BISACODYL 5 MG EC TAB PO PRN (22:12)
[2017-04-27] MEDS: VANCOMYCIN 1.25 GM in D5W 250 ML IV SCH ×2 (05:45→18:39)
--- NOTE | 2017-04-27 08:06 | HOSPPROG ---
Hospitalist Progress Note Assessment/Plan: #Right foot cellulitis -improved. Change to Doxy for 7 days treatment. Blood cultures negative #Chronic pain: accupuncture yesterday. home meds #Leukocytosis: resolved. Sacral wounds do not appear infected #T2 paraplegia: cont home meds #Asthma: no e/o exacerbation #Diet: regular #DVT ppx: Lovenox #Goals: his sister is Guardian, thus makes decisions. He will be transferred back to [facility] # Objective: Vital Signs Temp Pulse Resp BP Pulse Ox 36.4 C 69 16 115/67 98 04/27/17 04:00 04/27/17 04:00 04/27/17 04:00 04/27/17 04:00 04/27/17 04:00 Laboratory Results 04/26/17 05:50 04/26/17 05:50 04/26/17 04/27/17 04/28/17 05:59 05:59 05:59 Intake Total 250 500 Output Total 225 1400 Balance 25 -900 ICD10 Worksheet Patient Problems: Problems Problem Status Onset Cellulitis Acute Decubitus ulcer Acute Abscess Acute MRSA (methicillin resistant Staphylococcus aureus) Acute ~02/09/17 Severe sepsis Acute UTI (urinary tract infection) Acute Urinary tract infection Acute
[2017-04-27] MEDS ORDERED: Herbals/Supplements -Info Only PO SCH (09:00)
--- NOTE | 2017-04-27 09:29 | PCMIDPN ---
Assessment/Plan: Assessment/Plan: 1. RLE cellultis: - mild changes. - On Vancomycin. -Has hx of mrsa in past. -Could consider changing to oral doxycycline for 5-7 days -care coordinated with hospitalist team. 2.Multiple antibiotic allergies: - PCN, cephalosporin, sulfa, quinolones meds vanco 1.25gm q12- Subjective: AFebrile. mild cough. denies sob. denies diarrhea. Objective: Vital Signs Temp Pulse Resp BP Pulse Ox 36.4 C 69 16 115/67 98 04/27/17 04:00 04/27/17 04:00 04/27/17 04:00 04/27/17 04:00 04/27/17 04:00 Laboratory Results 04/26/17 05:50 04/26/17 05:50 04/26/17 04/27/17 04/28/17 05:59 05:59 05:59 Intake Total 250 500 Output Total 225 1400 Balance 25 -900 C-Reactive Protein 25.2 mg/L (<10.0) H 04/26/17 03:15 - Physical Exam General Appearance: alert, no apparent distress Respiratory: lungs clear Cardiac/Chest: regular rate, rhythm Extremities: No swelling Skin: erythema (mild erythema over right knee. medial leg without erythema. patient refuses to let me move leg to exam lateral leg. hyperemia of foot but doesn't appear to be c/w acute cellultiis.) ICD10 Worksheet Patient Problems: Problems Problem Status Onset Cellulitis Acute Decubitus ulcer Acute Abscess Acute MRSA (methicillin resistant Staphylococcus aureus) Acute ~02/09/17 Severe sepsis Acute UTI (urinary tract infection) Acute Urinary tract infection Acute
[2017-04-27] MEDS: MULTIVITAMINS 1 EACH TAB PO SCH (09:54)
[2017-04-27] MEDS: CLOTRIMAZOLE 1% 15 GM CRTUBE TP SCH ×2 (09:58→21:45)
--- NOTE | 2017-04-27 10:58 | PDIAF ---
- Diagnosis Diagnosis: right foot cellulitis Code Status: Full Code - Medication Management Discharge Medications: Medications to Continue on Transfer Albuterol [Proventil Inhaler HFA (*)] 2 puffs IH DAILY PRN 01/07/17 [Last Taken Unknown] Bisacodyl [Bisacodyl (*)] 5 mg PO PRN PRN 01/07/17 [Last Taken Unknown] Bisacodyl [Dulcolax] 10 mg RC DAILY PRN 01/07/17 [Last Taken Unknown] Multivitamins [Multivitamin (*)] 1 each PO DAILY 01/07/17 [Last Taken Unknown] Polyethylene Glycol 3350 [Miralax 17 gm (*)] 17 gm PO DAILY PRN #0 pkt 01/12/17 [Last Taken Unknown] Clotrimazole 1% 1 catrachita TP BID #1 cream 02/12/17 [Last Taken Unknown] Acetaminophen [Tylenol 325mg (*)] 650 mg PO Q6 PRN 04/26/17 [Last Taken Unknown] Herbals/Supplements -Info Only 1 ea PO DAILY 04/26/17 [Last Taken Unknown] Ipratropium/Albuterol [Duoneb (*)] 3 ml IH Q4HRS PRN 04/26/17 [Last Taken Unknown] Loratadine 10 mg PO DAILY PRN 04/26/17 [Last Taken Unknown] Sennosides/Docusate Sodium [Senokot-S] 1 - 2 tab PO Q6HRS PRN 04/26/17 [Last Taken Unknown] Discharge Medications: Refer to the Discharge Home Medication list for PRN reason. - Orders Services needed: Registered Nurse, Master Phy Therapist, Physical Therapy, Occupational Therapy Diet Recommendation: no restrictions on diet Diet Texture: Regular Texture Diet - Follow Up Care Current Providers and Referrals: DEVI DOYLE [Primary Care Provider] - As per Instructions
[2017-04-27] MEDS ORDERED: LORazepam 0.5 MG TAB PO ONE ×2 (11:14→23:42)
[2017-04-27 13:04] LABS: HEMATOCRIT 42.4 % (40.0-51.0); HEMOGLOBIN 13.9 g/dL (13.7-17.5); MEAN CELL HEMOGLOBIN 27.1 pg (27.9-34.1); MEAN CELL HEMOGLOBIN CONCENTR. 32.8 g/dL (32.4-36.7); MEAN CELL VOLUME 82.7 fL (81.5-99.8); RED BLOOD CELL COUNT 5.13 10^6/uL (4.40-6.38); RED CELL DISTRIBUTION WIDTH 16.2 % (11.5-15.2)
[2017-04-27] MEDS: ENOXAPARIN 40 MG/0.4 ML SYR SC SCH (13:15)
[2017-04-27 13:32] LABS: ANION GAP 14 mEq/L (8-16); CALCIUM 9.5 mg/dL (8.5-10.4); CARBON DIOXIDE 20 mEq/l (22-31); CHLORIDE 105 mEq/L (97-110); CREATININE 0.8 mg/dL (0.7-1.3); GLOMERULAR FILTRATION RATE > 60; GLUCOSE 100 mg/dL (70-100); POTASSIUM 4.5 mEq/L (3.5-5.2); SODIUM 139 mEq/L (134-144)
[2017-04-27] MEDS: ACETAMINOPHEN 325 MG TAB PO PRN ×2 (15:20→21:40)
[2017-04-27] MEDS: BISACODYL 5 MG EC TAB PO PRN (21:41)
[2017-04-28] MEDS: VANCOMYCIN 1.25 GM in D5W 250 ML IV SCH (06:39)
[2017-04-28 07:07] VITALS: O2SAT 94
[2017-04-28] MEDS: ACETAMINOPHEN 325 MG TAB PO PRN (07:56)
[2017-04-28] MEDS: MULTIVITAMINS 1 EACH TAB PO SCH (08:15)
[2017-04-28] MEDS: ENOXAPARIN 40 MG/0.4 ML SYR SC SCH (08:17)
--- NOTE | 2017-04-28 10:42 | HOSPPROG ---
Hospitalist Progress Note Assessment/Plan: #Concern for right foot cellulitis -h/o MRSA 5th toe osteo. s/p partial resection. No osteo on xray. Negative US.. DC with Doxy 5 days #Chronic pain: accupuncture consulted, home meds #Leukocytosis: resolved. Sacral wounds do not appear infected #T2 paraplegia: cont home meds #Asthma: no e/o exacerbation #Diet: regular #DVT ppx: Lovenox #Disp: DC. Patient refusing [place], but his sister, Belen Stephenson was appointed legal guardian, Sep 2016 and agrees to DC back to [place] Subjective: no fever, chills. Objective: Vital Signs Temp Pulse Resp BP Pulse Ox 36.8 C 81 18 146/87 H 94 04/28/17 07:06 04/28/17 07:06 04/28/17 07:06 04/28/17 07:06 04/28/17 07:06 04/27/17 04/28/17 04/29/17 05:59 05:59 05:59 Intake Total 150 Output Total 850 375 Balance -700 -375 - Physical Exam Constitutional: no apparent distress Eyes: PERRL Ears, Nose, Mouth, Throat: moist mucous membranes Cardiovascular: regular rate and rhythym, no murmur, rub, or gallop Respiratory: no respiratory distress, no rales or rhonchi Gastrointestinal: normoactive bowel sounds, soft, non-tender abdomen Genitourinary: no bladder fullness Skin: warm Musculoskeletal: other (spasticity LEs. Mild erythema right foot. Pulses intact) Neurologic: AAOx3, CN II-XII Intact Psychiatric: interacting appropriately, flat affect ICD10 Worksheet Patient Problems: Problems Problem Status Onset Cellulitis Acute Decubitus ulcer Acute Abscess Acute MRSA (methicillin resistant Staphylococcus aureus) Acute ~02/09/17 Severe sepsis Acute UTI (urinary tract infection) Acute Urinary tract infection Acute
[2017-04-28] MEDS: CLOTRIMAZOLE 1% 15 GM CRTUBE TP SCH (11:01)
--- NOTE | 2017-04-28 11:30 | PCMIDPN ---
Assessment/Plan: ? RLE cellulitis vs hyperemia : --5 more days of doxycycline Discussed with Dr. Jung Objective: Vital Signs Temp Pulse Resp BP Pulse Ox 36.8 C 81 18 146/87 H 94 04/28/17 07:06 04/28/17 07:06 04/28/17 07:06 04/28/17 07:06 04/28/17 07:06 04/27/17 04/28/17 04/29/17 05:59 05:59 05:59 Intake Total 150 Output Total 850 375 Balance -700 -375 C-Reactive Protein 25.2 mg/L (<10.0) H 04/26/17 03:15 ICD10 Worksheet Patient Problems: Problems Problem Status Onset Cellulitis Acute Decubitus ulcer Acute Abscess Acute MRSA (methicillin resistant Staphylococcus aureus) Acute ~02/09/17 Severe sepsis Acute UTI (urinary tract infection) Acute Urinary tract infection Acute
--- NOTE | 2017-04-28 11:39 | PDIAF ---
- Diagnosis Diagnosis: right foot cellulitis Code Status: Full Code - Medication Management Discharge Medications: Medications to Continue on Transfer Albuterol [Proventil Inhaler HFA (*)] 2 puffs IH DAILY PRN 01/07/17 [Last Taken Unknown] Bisacodyl [Bisacodyl (*)] 5 mg PO PRN PRN 01/07/17 [Last Taken Unknown] Bisacodyl [Dulcolax] 10 mg RC DAILY PRN 01/07/17 [Last Taken Unknown] Multivitamins [Multivitamin (*)] 1 each PO DAILY 01/07/17 [Last Taken Unknown] Polyethylene Glycol 3350 [Miralax 17 gm (*)] 17 gm PO DAILY PRN #0 pkt 01/12/17 [Last Taken Unknown] Clotrimazole 1% 1 catrachita TP BID #1 cream 02/12/17 [Last Taken Unknown] Acetaminophen [Tylenol 325mg (*)] 650 mg PO Q6 PRN 04/26/17 [Last Taken Unknown] Herbals/Supplements -Info Only 1 ea PO DAILY 04/26/17 [Last Taken Unknown] Ipratropium/Albuterol [Duoneb (*)] 3 ml IH Q4HRS PRN 04/26/17 [Last Taken Unknown] Loratadine 10 mg PO DAILY PRN 04/26/17 [Last Taken Unknown] Sennosides/Docusate Sodium [Senokot-S] 1 - 2 tab PO Q6HRS PRN 04/26/17 [Last Taken Unknown] Doxycycline Hyclate 100 mg PO BID #10 tablet 04/28/17 [Last Taken Unknown] Discharge Medications: Refer to the Discharge Home Medication list for PRN reason. - Orders Services needed: Registered Nurse, Master Automatic Beading Lathe Operator, Physical Therapy, Occupational Therapy Diet Recommendation: no restrictions on diet Diet Texture: Regular Texture Diet Wound Care Instructions: per wound care instructions - Follow Up Care Current Providers and Referrals: DEVI DOYLE [Primary Care Provider] - As per Instructions
[2017-04-28 12:17] VITALS: BP 119/70; PULSE 64; RESP 13; TEMP 97.4
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
--- NOTE | 2017-05-03 07:52 | PQFORM ---
PHYSICIAN QUERY FORM Needs Your Response This query form is being sent to you to assure this patient record is coded properly. Please respond to the question below: TOBACCO SORTER QUESTION: Dr Erich Patient admitted with cellulitis of the Right foot. He also has a history of a Right Toe amputation earlier in the year. Is the cellulits due to or a result of the surgical procedure ? Please document your response in the health record or below. ___ Yes _x__ No ___ Unable to determine ___ Other ( please indicate ) Thank you Margy RODGERS INSTRUCTIONS FOR RESPONSE: Answer question by clicking on the "Edit Document" button. Move cursor to area below the stars. When complete, hit "Save." Click on the "Sign" button, then click "Sign" again. Type in your PIN and hit "Enter." MTDD
== END 2017-04-28 15:18 | DRG 602 ==
LOC: EDUNIT# → EEVIPCON 04:04 → F3E 05:17 → OBSVTOIN 04-27 13:54
PROVIDERS: ADMIT Student in an Organized Health Care Education/Training Program; ATTEND Internal Medicine
DX: L03.115 Cellulitis of right lower limb (principal); L89.154 Pressure ulcer of sacral region, stage 4; G82.20 Paraplegia, unspecified; G89.29 Other chronic pain; N31.9 Neuromuscular dysfunction of bladder, unspecified; F43.10 Post-traumatic stress disorder, unspecified; F22 Delusional disorders; M85.80 Other specified disorders of bone density and structure, unspecified site; J45.909 Unspecified asthma, uncomplicated; Z89.421 Acquired absence of other right toe(s); Z86.14 Personal history of Methicillin resistant Staphylococcus aureus infection; Z99.3 Dependence on wheelchair
CPT/HCPCS: 97165-GO; G0378; G8987-GO-CL; G8988-GO-CL; J1650; J3370

== ENCOUNTER 2017-05-02 13:05 | Emergency (ER) | payer OTHER, MEDICAID ==
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
[2017-05-02 13:23] VITALS: RESP 18
[2017-05-02 15:01] VITALS: BP 116/62; PULSE 78; TEMP 98.4; O2SAT 95
== END 2017-05-02 14:58 | disposition home or self-care (01) ==
LOC: EDUNIT#
DX: F22 Delusional disorders (principal); J45.909 Unspecified asthma, uncomplicated

== ENCOUNTER 2018-05-30 02:57 | Emergency (ER) | payer OTHER, MEDICAID ==
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
[2018-05-30 04:13] LABS: PLATELET COUNT 173 10^3/uL (150-400)
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
--- NOTE | 2018-05-30 07:47 | ASMTTCLDSP ---
TLC Discharge Disposition Disposition: Answers: Discharge If Answers: Yes DISCHARGED: Patient/family given suicide hotline info & SAMHSA brochure? Disposition Notes: Notes: Pt stated commitment or ability to keep self safe, denied thoughts of self harm or harm to others. ED case management to consult regarding discharge follow up care needs. Pt was given local hotline information and SAMHSA brochure After an Attempt. Discharge Concerns/Recommendations: Notes: In consultation with [facility] ED physician, Jose Henry MD, Dr. Henry concurred that pt does not appear to meet 27-65 criteria requiring psychiatric hospitalization as pt does not appear to be an imminent risk of harm to self/others/gravely disabled due to a mental illness condition. Dr. Henry provided verbal order read back vacating M1 hold at 0650 hrs. Was patient given the Answers: Not applicable Inpatient Behavioral Health Prohibited Belongings List while in the ED? Psychiatrist vacating M1 Jose Henry MD Hold: Date and time M1 hold 05/30/2018 06:50 AM vacated (time format is hh:mm): Type of Hold: Answers: M1/72-hour Hold Hold initiated by: Answers: Police Date Signed: 05/30/2018 07:46 AM Electronically Signed By:Nj Bardales
[2018-05-30 12:10] VITALS: BP 128/78
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
== END 2018-05-30 12:12 | disposition home or self-care (01) ==
LOC: EDUNIT#
PROC: GZ11ZZZ Psychological Tests, Personality and Behavioral (ICD-10-PCS; principal; 2018-05-30)
DX: F91.9 Conduct disorder, unspecified (principal); L89.90 Pressure ulcer of unspecified site, unspecified stage
CPT/HCPCS: 80305; G0480